=== PATIENT | female | born 1995 | race Caucasian/White ===

== ENCOUNTER 2016-11-26 20:24 | Emergency (ER) | payer OTHER ==
[2016-11-26 20:33] VITALS: BP 126/82; PULSE 124; RESP 20; TEMP 98.9
--- NOTE | 2016-11-26 21:36 | ED ---
Skin/Abscess/FB HPI - General Chief complaint: Skin/Abscess/Foreign Body Stated complaint: Cyst Time Seen by Provider: 11/26/16 20:51 Source: patient, RN notes reviewed, old records reviewed Mode of arrival: ambulatory Limitations: no limitations - History of Present Illness Initial comments: This is a 21-year-old female with chief complaint of left labial abscess and pain. Patient reports that she noticed this started on 3 days ago. This got much worse and swollen today. Patient states that she's having some difficulty urinating. She states that this has never happened before, she reports that it started as a small pinple and now has progressed. Denies fever and chills, chest pain, shortness of breath, difficulty with bowel mocement, denies chance of . - Related Data Home Medications Medication Instructions Recorded Confirmed Acetaminophen Tab [Tylenol Tab] 650 mg PO Q4H PRN 11/26/16 11/26/16 Calcium Carb/Magnesium Cmb #10 2 tab PO TID PRN 11/26/16 11/26/16 [Sage-Mag 500-250 MG Chewable] Chlorpheniramine Maleate 4 mg PO Q4H PRN 11/26/16 11/26/16 [Chlor-Trimeton] Ibuprofen [Motrin] 600 mg PO Q6HR PRN 11/26/16 11/26/16 Medroxyprogesterone Acetate 150 mg IM Q90D 11/26/16 11/26/16 [Depo-Provera] Multivitamins, Thera [Multivitamin 1 tab PO DAILY 11/26/16 11/26/16 (formulary)] Ondansetron HCl [Zofran] 8 mg PO Q6H PRN 11/26/16 11/26/16 Tigan 300mg Suppository 300 mg RECTAL Q6H PRN 11/26/16 11/26/16 Trimethobenzamide [Tigan] 200 mg IM Q6HR PRN 11/26/16 11/26/16 Trimethobenzamide [Tigan] 300 mg PO Q6H PRN 11/26/16 11/26/16 Zofran 2mg/Ml Dilution 4 mg IM Q6H PRN 11/26/16 11/26/16 busPIRone HCl [Buspar] 10 mg PO TID PRN 11/26/16 11/26/16 guaiFENesin SYRUP 100MG/5ML 200 mg PO Q4H PRN 11/26/16 11/26/16 [Robitussin] traZODone HCL 50 - 150 mg PO HS 11/26/16 11/26/16 Previous Rx's Medication Instructions Recorded Ibuprofen [Motrin] 800 mg PO Q6HR PRN #15 tab 11/26/16 Sulfamethox-Tmp 800-160Mg [Bactrim 2 tab PO Q12HR 10 Days 11/26/16 DS 800-160 mg] Allergies Allergy/AdvReac Type Severity Reaction Status Date / Time No Known Allergies Allergy Verified 11/26/16 20:45 Review of Systems ROS Statement: Those systems with pertinent positive or pertinent negative responses have been documented in the HPI. ROS Other: All systems not noted in ROS Statement are negative. Past Medical History Past Medical History: No Reported History Past Surgical History: No Surgical Hx Reported Past Psychological History: Anxiety, Depression Smoking Status: Current every day smoker Past Alcohol Use History: None Reported Past Drug Use History: Cocaine, Marijuana General Exam - General Exam Comments Initial Comments: Well appearing 21 year old female. Limitations: no limitations General appearance: alert, in no apparent distress Head exam: Present: atraumatic, normocephalic, normal inspection Eye exam: Present: normal appearance, PERRL, EOMI. Absent: scleral icterus, conjunctival injection, periorbital swelling ENT exam: Present: normal exam, mucous membranes moist Neck exam: Present: normal inspection. Absent: tenderness, meningismus, lymphadenopathy Respiratory exam: Present: normal lung sounds bilaterally. Absent: respiratory distress, wheezes, rales, rhonchi, stridor Cardiovascular Exam: Present: regular rate, normal rhythm, normal heart sounds. Absent: systolic murmur, diastolic murmur, rubs, gallop, clicks GI/Abdominal exam: Present: soft, normal bowel sounds. Absent: distended, tenderness, guarding, rebound, rigid External exam: Present: erythema, swelling (Patient has a right labial abscess.) . Absent: normal external exam Extremities exam: Present: normal inspection, full ROM, normal capillary refill. Absent: tenderness, pedal edema, joint swelling, calf tenderness Back exam: Present: normal inspection Neurological exam: Present: alert, oriented X3, CN II-XII intact Psychiatric exam: Present: normal affect, normal mood Skin exam: Present: warm, dry, intact, normal color. Absent: rash Course Vital Signs 11/26/16 20:31 Temperature 98.9 F Pulse Rate 124 H Respiratory 20 Rate Blood Pressure 126/82 O2 Sat by Pulse 97 Oximetry Procedures - Incision & Drainage Consent Obtained: verbal consent Time Out Performed?: Yes Site: vulva/vagina (left labial) Size (cm): 7 Anesthetic Used: benzocaine 0.25% Amount (mLs): 2 I&D Cleaning Method: Chloroprep, Betadine Sterile Field Used?: Yes Scalpel Used: #11 I&D Drainage Obtained: Pus, Blood Packing: Other (word catheter) Culture Obtained?: Yes Patient Tolerated Procedure: well Medical Decision Making - Medical Decision Making his is a 21-year-old female with chief complaint of left labial abscess and pain. Patient reports that she noticed this started on 3 days ago. This got much worse and swollen today. Patient states that she's having some difficulty urinating. She states that this has never happened before, she reports that it started as a small pinple and now has progressed. Patient has left bartholin/ labial abscess. It was incised and drained and significant amount of pus drained from area. Word catheter placed, discussed she needs to have this removed in 48 hours, discusse dclose follow up with OBGYN. PAtient started on Bactrm DS and Motrin. PAtient is a patient of [facility]. Patient agrees with treatment plan and will comply. - Lab Data Lab Results 11/26/16 Range/Units 21:40 Urine Color Light Yellow Urine Appearance Clear (Clear) Urine pH 5.5 (5.0-8.0) Ur Specific [place] 1.004 (1.001-1.035) Urine Protein Negative (Negative) Urine Glucose (UA) Negative (Negative) Urine Ketones Negative (Negative) Urine Blood Negative (Negative) Urine Nitrite Negative (Negative) Urine Bilirubin Negative (Negative) Urine Urobilinogen <2.0 (<2.0) mg/dL Ur Leukocyte Esterase Negative (Negative) Disposition Clinical Impression: Bartholin's gland abscess Disposition: HOME SELF-CARE Condition: Good Instructions: Abscess Incision and Drainage (ED), Bartholin Cyst (ED) Additional Instructions: Patient advised to follow-up with an [facility] [employer] [facility]. Word catheter needs to stay in for the next 48 hours. If it falls off on its own just monitor the area. Take entire antibiotic prescription. Continue taking Motrin or Tylenol for pain. Return to the emergency department if any alarming signs or symptoms occur. Prescriptions: Ibuprofen [Motrin] 800 mg PO Q6HR PRN #15 tab PRN Reason: Pain Sulfamethox-Tmp 800-160Mg [Bactrim DS 800-160 mg] 2 tab PO Q12HR 10 Days Referrals: None,Stated [Primary Care Provider] - 1-2 days Melonie Varela MD [STAFF PHYSICIAN] - 1-2 days Time of Disposition: 22:34
[2016-11-26 21:49] LABS: Appearance,Urine Clear (Clear); Bilirubin,Urine Negative (Negative); Glucose,Urine (UA) Negative (Negative); Ketones,Urine Negative (Negative); Leukocyte Esterase,Urine Negative (Negative); Nitrite,Urine Negative (Negative); PH, Urine 5.5 (5.0-8.0); Protein,Urine Negative (Negative); Specific Gravity,Urine 1.004 (1.001-1.035); UA Billing (MACRO vs. MICRO) CHEM; Urobilinogen,Urine <2.0 mg/dL (<2.0)
[2016-11-26] MEDS ORDERED: IBUPROFEN 800 MG TAB PO STA (22:29)
[2016-11-26] MEDS ORDERED: SULFAMETH-TMP DS STARTER PACK 2 TAB BTL PO STA (22:29)
== END 2016-11-26 22:58 | disposition home or self-care (01) ==
LOC: EC 20:24
DX: N75.1 Abscess of Bartholin's gland (principal); F32.9 Major depressive disorder, single episode, unspecified; F41.9 Anxiety disorder, unspecified; F17.200 Nicotine dependence, unspecified, uncomplicated; Z79.899 Other long term (current) drug therapy
CPT/HCPCS: 81003; 87070; 87205; 99283